=== PATIENT | male | born 1995 | race Caucasian/White ===

== ENCOUNTER 2018-09-02 19:34 | Emergency (ER) | payer OTHER ==
[2018-09-02] MEDS ORDERED: Lidocaine 1% MPF* 2 ML VIAL INJ ONE (20:03)
[2018-09-02 20:05] VITALS: BP 134/77
[2018-09-02] MEDS ORDERED: Lidocaine 1%* 5 ML VIAL ONE (20:05)
--- NOTE | 2018-09-02 20:24 | UC ---
Laceration HPI - HPI Summary HPI Summary: 23-year-old college student states that he was in [facility] yesterday visiting his girlfriend and he cut his left thumb on a kitchen knife. He states he was going to go to the ER then but it would've cost him thousand [place]. He was able to get the bleeding to slow and stop with a dressing. The knife was clean and his tetanus is up-to-date. He has good function of his thumb and he is right-hand dominant. He denies any numbness or weakness. - History Of Current Complaint Chief Complaint: UCLaceration Stated Complaint: THUMB LAC Time Seen by Provider: 09/02/18 19:51 Hx Obtained From: Patient Pain Intensity: 7 - Allergies/Home Medications Allergies/Adverse Reactions: Allergies Allergy/AdvReac Type Severity Reaction Status Date / Time No Known Allergies Allergy Verified 09/02/18 19:59 Home Medications: Home Medications Multivitamin [Multivitamins] 1 cap PO DAILY 09/02/18 [History Confirmed 09/02/18 ] PMH/Surg Hx/FS Hx/Imm Hx Previously Healthy: Yes - Surgical History Surgical History: Yes Surgery Procedure, Year, and Place: [place] - Family History Known Family History: Positive: Non-Contributory - Social History Occupation: Student Alcohol Use: Occasionally Substance Use Type: None Smoking Status (MU): Never Smoked Tobacco - Immunization History Most Recent Tetanus Shot: 2017 Review of Systems All Other Systems Reviewed And Are Negative: Yes Constitutional: Negative: Fever - he has Skin: Positive: Other - Thumb laceration Motor: Negative: Decreased ROM, Weakness Neurovascular: Negative: Decreased Sensation Musculoskeletal: Negative: Edema Neurological: Negative: Weakness, Paresthesia Physical Exam Triage Information Reviewed: Yes Appearance: Well-Appearing, No Pain Distress Vital Signs: Initial Vital Signs Temp 99.5 F 09/02/18 19:59 Pulse 87 09/02/18 19:59 Resp 18 09/02/18 19:59 BP 134/77 09/02/18 19:59 Pulse Ox 99 09/02/18 19:59 Vital Signs Reviewed: Yes ENT: Positive: Normal ENT inspection Neck: Positive: Supple Respiratory: Positive: Lungs clear Cardiovascular: Positive: RRR Musculoskeletal: Positive: ROM Intact Neurological: Positive: Other: - Intact moving 2. discrimination and light touch sensation in the affected left thumb Skin Exam: Other - 1.5 cm clean linear laceration that bleeds when manipulated at the volar distal left thumb. Does not overlap a joint. No contamination. No redness or discharge. Procedures - Laceration/Wound Repair 1 Location: upper extremity - polar left distal thumb Description: Linear Anesthesia: Local, 1.0% - lidocaine, 0.5 cc Length, Depth and Shape: 1.5 cm linear, superficial Betadine Prep?: No Laceration/Wound Explored: clean, Other - wound irrigated under sink and clean with soap and water Closure: Single Layer Suture Type: Prolene - 40, 1 simple interrupted Number of Sutures: 1 Layer Closure?: No Sterile Dressing Applied?: Yes - Xeroform gauze and covered with tube gauze, wound closed loosely given age Laceration Course/Dx - Course/Dx Course Of Treatment: Wound more than 30 hours old. Clean. Irrigated under the sink and clean with soap and water. The midpoint of the wound was closed with a single suture loosely. This was dressed with Xeroform and tube gauze. - Diagnosis Provider Diagnosis: Laceration of thumb, left Discharge - Sign-Out/Discharge Documenting (check all that apply): Patient Departure All imaging exams completed and their final reports reviewed: No Studies - Discharge Plan Condition: Improved Disposition: HOME Patient Education Materials: Finger Laceration (ED) Referrals: [facility] [Provider Group] Additional Instructions: Suture can be removed in 7-10 days' time. Keep dressed with bacitracin ointment or provided antibiotic gauze. You can dress it with a Band-Aid after tomorrow. Return with concerns for infection, worse, increased pain, new symptoms or other concerns. Follow-up with [facility]. - Billing Disposition and Condition Condition: IMPROVED Disposition: Home
== END 2018-09-02 21:05 | disposition home or self-care (01) ==
LOC: UCEAST 19:34
DX: S61.012A Laceration without foreign body of left thumb without damage to nail, initial encounter (principal); W26.0XXA Contact with knife, initial encounter; Y92.9 Unspecified place or not applicable
CPT/HCPCS: 12001; 99201; G0463

== ENCOUNTER 2018-12-03 18:04 | Emergency (ER) | payer OTHER ==
[2018-12-03 18:59] VITALS: BP 108/66
[2018-12-03] MEDS ORDERED: Acetaminophen TAB* 325 MG PO ONE (19:36)
--- NOTE | 2018-12-03 19:40 | UC ---
HPI Febrile Illness - HPI Summary HPI Summary: 23 y/o male presents to the urgent care c/o body aches, chills, mild DAN and fatigue for the past 2 days. Pt reports fever developed today and he took Ibuprofen PO 400mg about 4hrs ago. Pt felt light head Body aches for a couple of days, but today got worse with shaking, headache, lightheaed, sweaty, fatigued - History of Current Complaint Chief Complaint: UCGeneralIllness Time Seen by Provider: 12/03/18 19:19 Hx Obtained From: Patient Onset/Duration: Started Hours Ago - 4 hrs ago Timing: Constant Initial Severity: Mild - body aches, fatigue Current Severity: Mild Pain Intensity: 4 - heache and left ear pain Pain Scale Used: 0-10 Numeric Aggravating Factors: Nothing Alleviating Factors: OTC Medicine - ibuprofen 400mg PO 4 hrs ago Associated Signs and Symptoms: Chills, Headache - Risk Factors Pseudomonas Risk Factors: Negative Serious Bacterial Infection Risk Factors: Negative - Allergy/Home Medications Allergies/Adverse Reactions: Allergies Allergy/AdvReac Type Severity Reaction Status Date / Time No Known Allergies Allergy Verified 12/03/18 19:00 Home Medications: Home Medications Ibuprofen TAB* [Motrin TAB* 400 MG] 400 mg PO Q6H PRN 12/03/18 [History Confirmed 12/03/18] PMH/Surg Hx/FS Hx/Imm Hx Previously Healthy: Yes - Pt denies PMHX - Surgical History Surgical History: Yes Surgery Procedure, Year, and Place: [place] - Family History Known Family History: Positive: None - Pt denies FMHX, Non-Contributory - Social History Occupation: Employed Full-time Lives: With Family Alcohol Use: Weekly Substance Use Type: None Smoking Status (MU): Never Smoked Tobacco - Immunization History Most Recent Tetanus Shot: 2017 Hx Tetanus, Diphtheria Vaccination: Yes Review of Systems All Other Systems Reviewed And Are Negative: Yes Constitutional: Positive: Fever, Chills, Fatigue Skin: Positive: Negative Eyes: Positive: Negative ENT: Positive: Ear Ache - B/L ear pain, Sinus Congestion, Sinus Pain/Tenderness , Other - PND Respiratory: Positive: Negative Cardiovascular: Positive: Negative Gastrointestinal: Positive: Negative Genitourinary: Positive: Negative Motor: Positive: Negative Neurovascular: Positive: Negative Musculoskeletal: Positive: Negative Neurological: Positive: Headache Psychological: Positive: Negative Is Patient Immunocompromised?: No Physical Exam Triage Information Reviewed: Yes Vital Signs: Initial Vital Signs Temp 101.4 F 12/03/18 18:54 Pulse 107 12/03/18 18:54 Resp 18 12/03/18 18:54 BP 108/66 12/03/18 18:54 Pulse Ox 99 12/03/18 18:54 Course/Dx - Febrile Illness Differential Diagnoses: Cellulitis, Fever of Unknown Origin, Meningitis, Pneumonia, Stevinson Spotted Fever, Viremia, Other: - lyme - Diagnoses Provider Diagnosis: Fever, Otitis media, Otitis externa Discharge - Sign-Out/Discharge Documenting (check all that apply): Patient Departure - d/c home All imaging exams completed and their final reports reviewed: No Studies - Discharge Plan Condition: Stable Disposition: HOME Prescriptions: Amoxicillin PO (*) [Amoxicillin 875 MG (*)] 875 mg PO BID #20 tab Neomyc/Polym/HC 1% OTIC SUSP* [Cortisporin Otic Susp 1%*] 4 drop LEFT EAR TID # 1 btl Patient Education Materials: Ear Infection (ED) Referrals: [facility] [Outside] - 2 Days Additional Instructions: 1- Please take the full course of the antibiotic to avoid resistance.Take yogurts w/ probiotics or Culturelle to protect your GI system 2-Please take ibuprofen PO q6-8hrs prn as instructed after meals to alleviate fever, pain and swelling. Increase fluid intake, eat well, rest and avoid strenuous exercise. 3- Use cortisporin otic drops as directed to alleviat left otitis externa 4-Lyme serology and CBC were sent to the lab. You will be notified of any abnormal result 5-If symptoms worsen and fever braid maker't be controlled and you develop dizziness, abdominal pain, N/v please go immediately to the ER for further management. Otherwise w/u w/ your PCP in 2-3 days if symptoms are not improving. - Billing Disposition and Condition Condition: STABLE Disposition: Home
[2018-12-04 15:02] LABS: Hematocrit 43 % (42-52); Mean Corpuscular HGB Conc 35 g/dL (31-36); Mean Corpuscular Hemoglobin 30 pg (27-31); Mean Corpuscular Volume 86 fL (80-94); Mean Platelet Volume 9.7 fL (7.4-10.4); Platelet Count 170 10^3/uL (150-450); Red Cell Distribution Width 14 % (10-15); White Blood Count 15.5 10^3/uL (3.5-10.8)
[2018-12-04 15:42] LABS: ABS Lymphocytes 0.5 10^3/ul (1.0-4.8); ABS Monocytes 0.5 10^3/ul (0-0.8); ABS Neutrophils 14.4 10^3/ul (1.5-7.7); Eosinophil % 0.2 %; Lymphocyte % 3.2 %; Nucleated Red Blood Cells % 0.3
--- NOTE | 2018-12-05 07:21 | UC ---
- Progress Note Progress Note: Labs reviewed today: CBC with leukocytosis at 15.5 with left shift He is currently being treated with Cortisporin eardrops and amoxicillin for otitis externa and otitis media. White count is likely high because of the infection RN to call the patient and informed of test results. If he is better, he should continue to monitor for any worsening. But If patient reports that his symptoms are getting worse heshould go to the ER for further evaluation. Course/Dx - Diagnoses Provider Diagnoses: Fever, Otitis media, Otitis externa Discharge - Sign-Out/Discharge Documenting (check all that apply): Post-Discharge Follow Up All imaging exams completed and their final reports reviewed: No Studies - Discharge Plan Condition: Stable Disposition: HOME Prescriptions: Amoxicillin PO (*) [Amoxicillin 875 MG (*)] 875 mg PO BID #20 tab Neomyc/Polym/HC 1% OTIC SUSP* [Cortisporin Otic Susp 1%*] 4 drop LEFT EAR TID # 1 btl Patient Education Materials: Ear Infection (ED) Referrals: [facility] [[facility]] - 2 Days Additional Instructions: 1- Please take the full course of the antibiotic to avoid resistance.Take yogurts w/ probiotics or Culturelle to protect your GI system 2-Please take ibuprofen PO q6-8hrs prn as instructed after meals to alleviate fever, pain and swelling. Increase fluid intake, eat well, rest and avoid strenuous exercise. 3- Use cortisporin otic drops as directed to alleviat left otitis externa 4-Lyme serology and CBC were sent to the lab. 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 Otherwise w/u w/ your PCP in 2-3 days if symptoms are not improving. - Billing Disposition and Condition Condition: STABLE Disposition: Home
== END 2018-12-03 20:40 | disposition home or self-care (01) ==
LOC: UCEAST 18:04
DX: R50.9 Fever, unspecified (principal); H66.90 Otitis media, unspecified, unspecified ear; H60.90 Unspecified otitis externa, unspecified ear
CPT/HCPCS: 36415; 85025; 86618; 99213; A9270-GY; G0463